=== PATIENT | male | born 2000 | race Caucasian/White ===

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

== ENCOUNTER 2018-06-17 10:21 | Emergency (ER) | payer BC ==
[~2018-06-17] VITALS: Ht 182.9 cm; Wt 56.7 kg
[2018-06-17 10:26] VITALS: BP_SYST 118
--- NOTE | 2018-06-17 10:26 | NUR ---
Patient BIB BLS to ER bed 3 to gown for evaluation. Side rails up.
--- NOTE | 2018-06-17 10:27 | NUR ---
ER Dr. Eid at bedside examining patient.
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
--- NOTE | 2018-06-17 10:40 | NUR ---
Urine collected and sent to lab.
--- NOTE | 2018-06-17 11:30 | NUR ---
Laboratory called to inform urine sample nowhere to be found in their dept. Dr. Eid informed.
--- NOTE | 2018-06-17 11:45 | NUR ---
Dietary delivered regular food tray to pt's bedside.
--- NOTE | 2018-06-17 12:33 | NUR ---
Pt resting comfortably on gurney, no signs of distress, pt calm and cooperative.
--- NOTE | 2018-06-17 13:05 | NUR ---
Pt resting on gurney, no signs of distress, pt compliant and calm demeanor, [id number].
[2018-06-17 13:38] LABS: BARBITURATE, URINE NEGATIVE (NEG <=200); BENZODIAZEPINE, URINE NEGATIVE (NEG <=150); COCAINE, URINE NEGATIVE (NEG <=150); METHAMPHETAMINES SCREEN,URINE NEGATIVE (NEG <=500); URINE AMPHETAMINE NEGATIVE (NEG <=500); URINE METHADONE NEGATIVE (NEG <=200)
[2018-06-17 13:39] LABS: CANNABINOID, URINE POSITIVE (NEG <=50); OPIATE, URINE NEGATIVE (NEG <=100); PHENCYCLIDINE SCREEN,URINE NEGATIVE (NEG <=25); UR TRICYCLIC ANTIDEPRESSANTS NEGATIVE (NEG <=300); URINE OXYCODONE SCREEN NEGATIVE (NEG <=100); URINE PROPOXYPHENE SCREEN NEGATIVE (NEG <=300)
--- NOTE | 2018-06-17 13:41 | NUR ---
ER Dr. Eid at bedside explaining results to patient.
--- NOTE | 2018-06-17 13:42 | NUR ---
Pt requested to call father to pick him up from hospital.
--- NOTE | 2018-06-17 13:50 | NUR ---
Pt spoke to father asking him to pick him up. Father wanted to speak with nurse. Per father's report, pt is "suicidal and says he is going to cut his wrists, overdose on drugs, walk into oncoming traffic." Pt was asked if he was suicidal and yells "I DON'T WANT TO FUCKING HURT MYSELF! I DON'T KNOW WHY MY DAD IS TELLING YOU THAT!" Pt spoke his father and stated "I just want to go back to [place]. Please pick me up!" Dr. Eid is made aware
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
== END 2018-06-17 14:00 | disposition left against medical advice (07) ==
LOC: SED 10:21
DX: F41.8 Other specified anxiety disorders (principal); F17.200 Nicotine dependence, unspecified, uncomplicated; F12.10 Cannabis abuse, uncomplicated; F15.10 Other stimulant abuse, uncomplicated; Z85.118 Personal history of other malignant neoplasm of bronchus and lung
CPT/HCPCS: 80307; 99284

== ENCOUNTER 2023-09-11 04:28 | Emergency (ER) | payer BC, MEDICAID ==
[~2023-09-11] VITALS: Ht 185.4 cm; Wt 63.5 kg
[2023-09-11 04:39] VITALS: BP_SYST 147; PULSE 104; RESP 16; TEMP 95.8; O2SAT 98
[2023-09-11 05:33] LABS: BASOPHILS % (AUTO) 0.5 % (0.0-2.0); EOSINOPHILS # (AUTO) 0.1 K/uL (0.0-0.4); HEMATOCRIT 49.3 % (36-54); HEMOGLOBIN 16.3 g/dL (14.0-18.0); LYMPHOCYTES # (AUTO) 1.4 K/uL (1.0-5.5); LYMPHOCYTES % (AUTO) 28.9 % (20.5-51.5); MEAN CORPUSCULAR HEMOGLOBIN 29 pg (27-31); MEAN CORPUSCULAR HGB CONC 33 % (32-36); MEAN CORPUSCULAR VOLUME 89 fL (79.0-98.0); MONOCYTES # (AUTO) 0.4 K/uL (0.0-1.0); MONOCYTES % (AUTO) 9.3 % (1.7-9.3); NEUTROPHILS # (AUTO) 2.8 K/uL (1.8-7.7); NEUTROPHILS % (AUTO) 58.3 % (40.0-70.0); PLATELET COUNT (AUTO) 236 K/uL (130-430); RED BLOOD CELL COUNT(AUTO) 5.55 MIL/uL (4.2-6.2); WHITE BLOOD COUNT (AUTO) 4.8 K/uL (4.8-10.8)
[2023-09-11 05:35] LABS: CALCIUM 9.1 mg/dL (8.4-11.0); CREATININE 0.89 mg/dL (0.55-1.30); POTASSIUM 3.8 mmol/L (3.5-5.1)
[2023-09-11] MEDS ORDERED: MAG-AL HYDROX/SIMETH 30 ML UDC PO ONE (05:45)
[2023-09-11 05:50] LABS: ALBUMIN 3.6 g/dL (3.4-4.8); BILIRUBIN,DIRECT 0.3 mg/dL (0.0-0.3); TOTAL BILIRUBIN 1.1 mg/dL (0.0-1.0); TOTAL PROTEIN, SERUM 7.5 g/dL (6.4-8.3)
[2023-09-11] MEDS ORDERED: ANT30 PO (05:52)
[2023-09-11] MEDS ORDERED: CEFU250T85 PO (05:52)
[2023-09-11 06:03] VITALS: BP_SYST 147; PULSE 104; RESP 16; TEMP 95.8; O2SAT 98
== END 2023-09-11 06:04 | disposition home or self-care (01) ==
LOC: SED 04:28
DX: S00.512A Abrasion of oral cavity, initial encounter (principal); F41.9 Anxiety disorder, unspecified; F32.9 Major depressive disorder, single episode, unspecified; X58.XXXA Exposure to other specified factors, initial encounter; Y93.89 Activity, other specified; Y92.89 Other specified places as the place of occurrence of the external cause; Y99.8 Other external cause status
CPT/HCPCS: 36415; 71045; 80048; 80076; 83605; 85025; 87040; 99284